=== PATIENT | male | born 1975 | race African-American/Black ===

== ENCOUNTER 2017-04-08 14:31 | Emergency (ER) | payer SELFPAY ==
[~2017-04-08 14:31] MED LIST: IBUP800T23 PO; RANI150T PO; ROBA750T PO; WRIST SPLINT/CO1 MI1; WRIST SPLINT/CO1 MIS
[2017-04-08] MEDS ORDERED: IOHEXOL 350 MG/ML 10 ML VIAL (for RAD DIAG) IVCONTRAST ONE (14:32)
[2017-04-08 14:41] VITALS: BP 89/44; PULSE 87; RESP 20; TEMP 97.8; O2SAT 98
[2017-04-08 14:42] VITALS: BP 136/90; PULSE 85; RESP 16; O2SAT 98
[2017-04-08] MEDS ORDERED: SODIUM CHLOR 0.9% 1000 ML INJ 1,000 ML IV SCH (14:44)
[2017-04-08] MEDS ORDERED: MORPHINE SULFATE 4 MG/ML INJ IV PUSH ONE (14:45)
[2017-04-08] MEDS ORDERED: ONDANSETRON HCL 4 MG/2 ML VIAL IVP ONE (14:45)
[2017-04-08] MEDS ORDERED: LIDOCAINE 1%/EPINEPHrine 1:100,000 SOLN 20 ML VIAL INFIL ONE (15:00)
[2017-04-08 15:34] LABS: AUTOMATED NEUTROPHIL # 3.1 TH/MM3 (1.8-7.7); BASOPHIL % 0.5 % (0.0-2.0); EOSINOPHIL # 0.2 TH/MM3 (0-0.4); EOSINOPHIL % 2.8 % (0.0-4.0); HEMATOCRIT 45.3 % (39.0-51.0); HEMO FLAGS DIFF FINAL; LYMPH % 43.2 % (9.0-44.0); MEAN CELL VOLUME 90.2 FL (80.0-100.0); MEAN CORPUSCULAR HEMOGLOBIN 30.4 PG (27.0-34.0); MEAN CORPUSCULAR HGB CONC 33.7 % (32.0-36.0); MONO % 8.6 % (0.0-8.0); NEUT % 44.9 % (16.0-70.0); PLATELET COUNT 302 TH/MM3 (150-450); RED BLOOD COUNT 5.02 MIL/MM3 (4.50-5.90); RED CELL DISTRIBUTION WIDTH 13.2 % (11.6-17.2)
[2017-04-08] MEDS ORDERED: LIDOCAINE HCL 1% 50 ML VIAL ONE (15:44)
[2017-04-08] MEDS ORDERED: LIDOCAINE HCL 1% 50 ML VIAL INFIL ONE (15:45)
[2017-04-08 15:48] LABS: BICARBONATE 26.7 MEQ/L (21.0-32.0); POTASSIUM 3.6 MEQ/L (3.5-5.1)
[2017-04-08 15:53] VITALS: RESP 15
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
[2017-04-08] MEDS ORDERED: DICL75TA PO (17:24)
[2017-04-08] MEDS ORDERED: HYDR-3533 PO (17:24)
[2017-04-08] MEDS ORDERED: MUPI2%T TOPICAL (17:24)
[2017-04-08 18:03] VITALS: BP 138/80
== END 2017-04-08 18:05 | disposition home or self-care (01) ==
LOC: NEPC 14:31
DX: S01.81XA Laceration without foreign body of other part of head, initial encounter (principal); S50.812A Abrasion of left forearm, initial encounter; S50.811A Abrasion of right forearm, initial encounter; S00.81XA Abrasion of other part of head, initial encounter; S09.90XA Unspecified injury of head, initial encounter; M54.2 Cervicalgia; I10 Essential (primary) hypertension; E78.00 Pure hypercholesterolemia, unspecified; V29.88XA Motorcycle rider (driver) (passenger) injured in other specified transport accidents, initial encounter; Z86.79 Personal history of other diseases of the circulatory system; Z87.39 Personal history of other diseases of the musculoskeletal system and connective tissue; Z87.19 Personal history of other diseases of the digestive system
CPT/HCPCS: 12011; 70450; 71260; 72125; 73090; 74177; 80048; 85025; 96374; 96375; 99285; J2270; J2405; J7030; Q9967

== ENCOUNTER 2017-04-20 10:46 | Emergency (ER) | payer SELFPAY ==
[~2017-04-20] VITALS: Ht 185.4 cm; Wt 130.0 kg
[~2017-04-20 10:46] MED LIST changes: +DICL75TA PO; +HYDR-3533 PO; +MUPI2%T TOPICAL
[2017-04-20 10:48] VITALS: BP 137/86; PULSE 77; RESP 24; TEMP 98.4; O2SAT 96
--- NOTE | 2017-04-20 11:11 | PD ---
HPI Chief Complaint: Wound/Suture/Staple Re-Check Time Seen by Provider: 10:55 Travel History International Travel<30 days: No Contact w/Intl Traveler<30days: No Traveled to known affect area: No History of Present Illness HPI The patient is a 41-year-old [place] male who presents emergency department for suture removal. The patient states he's had sutures placed in the forehead approximately 10-12 days ago. Patient states the wound has healed well, there is been no bleeding or dehiscence. The patient's tetanus shot is up -to-date. He also states he abrasions to his arms are healing without difficulty and he has been applying Polysporin daily. He denies any current physical complaints. PFSH Past Medical History Blood Disorders: No Anxiety: No Depression: No Heart Rhythm Problems: Yes Cancer: No Cardiovascular Problems: Yes High Cholesterol: Yes Chest Pain: Yes Congestive Heart Failure: No Endocrine: No GERD: Yes Genitourinary: No Hypertension: Yes Immune Disorder: No Musculoskeletal: Yes ( BACK PAIN AND SPASMS) Neurologic: No Psychiatric: No Reproductive: No Respiratory: No Myocardial Infarction: No Social History Alcohol Use: Yes (1-2 X MONTHLY) Tobacco Use: No Substance Use: No Allergies-Medications (Allergen,Severity, Reaction): Coded Allergies: levofloxacin (Unverified Allergy, Severe, RASH, 04/20/17) Reported Meds & Prescriptions Reported Meds & Active Scripts Active Bactroban Topical (Mupirocin) 22 Gm Cream 1 Applic TOPICAL BID Diclofenac Sodium DR (Diclofenac Sodium) 75 Mg Tabdr 75 Mg PO BID PRN Lortab (Hydrocodone-Acetaminophen) 5-325 Mg Tab 1 Tab PO Q6H PRN 14 Days Robaxin (Methocarbamol) 750 Mg Tab 750 Mg PO Q8HR Ibuprofen 800 Mg Tab 800 Mg PO Q8H PRN Wrist Splint/Cock-Up/Right 1 Mis Mis 1 Ea .ROUTE DIRECTED Wrist Splint/Cock-Up/Left 1 Mis Mis 1 Ea .ROUTE DIRECTED Ranitidine (Ranitidine HCl) 150 Mg Tab 150 Mg PO DAILY Review of Systems HENT: No: Headaches Musculoskeletal: No: Limited ROM Skin: Positive Other (as noted in history present illness) Neurologic: No: Headache Physical Exam Narrative GENERAL: Awake, alert, very pleasant 41-year-old male who appears his stated age and is in no acute respiratory distress. SKIN: Focused skin assessment warm/dry. Laceration above the left eyebrow with [address]. No dehiscence or drainage. Old appearing abrasions to the forearms bilateral without erythema or drainage. HEAD: Atraumatic. Normocephalic. EYES: Pupils equal and round. No scleral icterus. No injection or drainage. ENT: No nasal bleeding or discharge. Mucous membranes pink and moist. NECK: Trachea midline. No JVD. MUSCULOSKELETAL: No obvious deformities. No clubbing. No cyanosis. No edema. NEUROLOGICAL: Awake and alert. No obvious cranial nerve deficits. Motor grossly within normal limits. Normal speech. Nonfocal. PSYCHIATRIC: Appropriate mood and affect; insight and judgment normal. Data Data Last Documented VS Vital Signs Date Time Temp Pulse Resp B/P (MAP) Pulse Ox O2 Delivery O2 Flow Rate FiO2 04/20/17 10:48 98.4 77 24 137/86 (103) 96 Room Air MDM Medical Decision Making Medical Screen Exam Complete: Yes Emergency Medical Condition: Yes Medical Record Reviewed: Yes Differential Diagnosis Differential diagnosis includes suture removal, wound reevaluation, wound check , infected wound, wound dehiscence. Narrative Course The patient's sutures were removed without difficulty. There is no dehiscence or bleeding. The patient was advised to apply Polysporin for the next week and then sunblock to decrease scarring. The patient's tetanus shot is up-to-date. He is stable for outpatient follow-up. Procedures Procedure Narrative I removed 10 sutures from the patient's forehead without difficulty. The patient tolerated the procedure without difficulty and there was no complications. Diagnosis Primary Impression: Visit for suture removal Patient Instructions: General Instructions Additional Instructions: Follow-up with your primary physician. Wound care instructions. Return if symptoms worsen or progress. Disposition: 01 DISCHARGE HOME Condition: Stable Hiram Maldonado MD Apr 20, 2017 11:11
== END 2017-04-20 11:42 | disposition home or self-care (01) ==
LOC: NEPD 10:46
DX: Z48.02 Encounter for removal of sutures (principal); E78.00 Pure hypercholesterolemia, unspecified; K21.9 Gastro-esophageal reflux disease without esophagitis; I10 Essential (primary) hypertension; Z79.899 Other long term (current) drug therapy; Z88.8 Allergy status to other drugs, medicaments and biological substances
CPT/HCPCS: 99281